=== PATIENT | female | born 1935 | race Caucasian/White ===

== ENCOUNTER → 2017-02-08 | Outpatient (CLI) | payer OTHER | LOC: RAD 13:10 | DX: J98.4 Other disorders of lung (principal) ==

== ENCOUNTER → 2017-05-15 | Outpatient (CLI) | payer OTHER ==
[2017-05-15 13:15] LABS: HEMATOCRIT 35.5 % (37.0-47.0); HEMOGLOBIN 11.8 gm/dL (12.0-15.0); MCH 31.8 pg (26.0-34.0); MCHC 33.3 g/dL (28.0-37.0); MCV 95.4 fL (80.0-100.0); RBC 3.73 mil/uL (4.20-5.00); RDW 14.6 % (10.5-14.5); WBC 8.4 thou/uL (4.0-11.0)
[2017-05-15 13:34] LABS: ALBUMIN 3.3 g/dL (3.4-5.0); CALCIUM 9.6 mg/dL (8.5-10.1); CREATININE 0.6 mg/dL (0.6-1.0); TOTAL BILIRUBIN 1.2 mg/dL (<0.1-1.0); TOTAL PROTEIN 6.7 g/dL (6.4-8.2)
[2017-05-15 13:35] LABS: POTASSIUM 5.1 mmol/L (3.5-5.1)
[2017-05-15 13:58] LABS: BE(vivo) 4.2 mmol/L (-2 to +3); HCO3 29.2 mmol/L (22.0-26.0); PCO2 45.4 mmHg (35.0-45.0); PO2 62.7 mmHg (80.0-100.0); pH 7.426 (7.360-7.450); sO2 92.4 % (92.0-98.0)
== END ==
LOC: NUC 12:31
PROVIDERS: Internal Medicine Pulmonary Disease
DX: I27.20 Pulmonary hypertension, unspecified (principal); M43.8X4 Other specified deforming dorsopathies, thoracic region; G47.33 Obstructive sleep apnea (adult) (pediatric)

== ENCOUNTER → 2017-05-24 | Outpatient (CLI) | payer OTHER ==
--- NOTE | ~2017-05-24 | 2DMMODE ---
[facility] [address] [place] [address] 2 D/M-MODE ECHOCARDIOGRAM Name: KIMBERLEE MURILLO Room #: REG [facility]#: [id number] Admission: 05/24/17 Attend Phys: Demar Nixon Discharge: Date of : 33 Date of Service: 05/24/17 1507 Report #: [id number] THIS REPORT FOR: //name// APPROVED REPORT Study performed: 05/24/2017 10:42:55 EXAM: Comprehensive 2D, Doppler, and color-flow Echocardiogram Patient Location: Echo lab Status: routine BSA: 1.46 HR: 70 bpm BP: 148/75 mmHg Other Information Study Quality: Adequate Technically limited study due to lung disease. Indications Dyspnea Hypertension/HDD 2D Dimensions RVDd: 18.89 mm LVEF(%): 61.21 (>50%) IVSd: 12.63 (7-11mm) LVOT Diam: 19.62 (18-24mm) LVDd: 40.42 mm PWd: 11.58 (7-11mm) Ascending Ao: 31.65 (22-36mm) LVDs: 27.33 (25-40mm) Aortic Root: 25.13 mm Aguilera's LVEF: 61.21 % Volumes Left Atrial Volume (Systole) Single Plane 4CH: 41.06 mL Single Plane 2CH: 46.83 mL LA ESV Index: 30.00 mL/m2 Aortic Valve AoV Peak Andrés.: 2.33 m/s AO Peak Gr.: 21.68 mmHg LVOT Max P.88 mmHg AO Mean Gr.: 8.91 mmHg LVOT Mean P.21 mmHg AO V2 Mean: 1.32 m/s LVOT Max V: 1.10 m/s AO V2 VTI: 46.51 cm LVOT Mean V: 0.69 m/s ADALBERTO (VTI): 1.50 cm2 LVOT V1 VTI: 23.02 cm ADALBERTO Vmax: 1.43 cm2 [facility] [place] [address] 2 D/M-MODE ECHOCARDIOGRAM Name: KIMBERLEE MURILLO [id number] Admission: 05/24/17 Attend Phys: Demar Nixon Discharge: Date of : 33 Date of Service: 05/24/17 1507 Report #: [id number] SV (LVOT): 69.58 mL Mitral Valve E/A Ratio: 0.9 MV Decel. Time: 191.21 ms MV E Max Andrés.: 1.37 m/s MV A Andrés.: 1.52 m/s MV PHT: 55.45 ms IVRT: 100.35 ms Pulmonary Valve PV Peak Andrés.: 1.19 m/s PV Peak Gr.: 5.63 mmHg Pulmonary Vein P Vein S: 0.65 m/s P Vein A: 0.25 m/s P Vein D: 0.43 m/s P Vein A Dur.: 128.0 msec P Vein S/D Ratio: 1.51 Tricuspid Valve TR Peak Andrés.: 3.23 m/s RAP Estimate: 10.00 mmHg TR Peak Gr.: 41.81 mmHg PA Pressure: 52.00 mmHg Left Ventricle The left ventricle is normal size. Mild concentric left ventricular hypertrophy. The left ventricular systolic function is normal. The left ventricular ejection fraction is within the normal range. LVEF is 55-60%. Mild diastolic dysfunction is present (impaired relaxation pattern). Right Ventricle The right ventricle is normal size. The right ventricular systolic function is normal. Atria The left atrium size is normal. The right atrium size is normal. Aortic Valve Aortic valve leaflets are mildly thickened. No aortic regurgitation is present. There is mild valvular aortic stenosis. Calculated aortic valve area is 1.5 cm2 with maximum pressure gradient of 22 mmHg and mean pressure gradient of 9 mmHg. Mitral Valve Moderate mitral annular calcification. [place] [address] 2 D/M-MODE ECHOCARDIOGRAM Name: KIMBERLEE MURILLO Room #: REG [facility]#: [id number] Admission: 05/24/17 Attend Phys: Demar Nixon Discharge: Date of : 33 Date of Service: 05/24/17 1507 Report #: [id number] regurgitation. No evidence of mitral valve stenosis. Tricuspid Valve The tricuspid valve is normal in structure. Mild tricuspid regurgitation. PAP is estimated at 52 mmHg. Pulmonic Valve Pulmonic valve is not well visualized. Great Vessels The aortic root is normal in size. IVC is not visualized. Pericardium There is no pericardial effusion. <Conclusion> The left ventricle is normal size. Mild concentric left ventricular hypertrophy. The left ventricular systolic function is normal. Mild diastolic dysfunction is present (impaired relaxation pattern). The right ventricle is normal size. The left atrium size is normal. There is mild valvular aortic stenosis. Moderate mitral annular calcification. Mild to moderate mitral regurgitation. Mild tricuspid regurgitation. PAP is estimated at 52 mmHg. <ELECTRONICALLY SIGNED> By: Manish Mobley MD 05/24/17 1507 1507 1507 Manish Mobley MD /INF
== END ==
LOC: CV 09:05
DX: I08.1 Rheumatic disorders of both mitral and tricuspid valves (principal); I10 Essential (primary) hypertension; I27.20 Pulmonary hypertension, unspecified; G47.33 Obstructive sleep apnea (adult) (pediatric)

== ENCOUNTER → 2017-06-02 | Outpatient (CLI) | payer OTHER | LOC: SLEEPLAB 13:12 | DX: G47.33 Obstructive sleep apnea (adult) (pediatric) (principal) ==